=== PATIENT | male | born 1935 | race Hispanic/Latino ===

== ENCOUNTER 2018-07-29 06:00 | Day surgery (SDC) | payer MEDICARE ==
[~2018-07-29 06:00] MED LIST: ACET650T24 PO; ASPI-1181 PO; CETI10TA57 PO; DONE10TA43 PO; LISI10TA7 PO; SODIUM CHLORIDE 0.9% 1000ML 1,000 ML IV ONE; TAMS0.4C32 PO
[2018-07-29 06:18] VITALS: BP 113/66
[2018-07-29] MEDS ORDERED: ATOR20TA65 PO (06:55)
[2018-07-29] MEDS ORDERED: BUSP5TAB3 PO (06:55)
[2018-07-29] MEDS ORDERED: GABA-529 PO (06:55)
[2018-07-29] MEDS ORDERED: SERT50TA12 PO (06:55)
[2018-07-29] MEDS ORDERED: DUTA0.5C17 PO (06:58)
[2018-07-29] MEDS ORDERED: CALC-877 PO (06:58)
[2018-07-29] MEDS ORDERED: DONE10TA43 PO (06:58)
[2018-07-29] MEDS ORDERED: MAGOX PO (07:02)
[2018-07-29] MEDS ORDERED: FEXO-59 PO (07:02)
[2018-07-29 07:14] VITALS: BP 121/67
[2018-07-29 07:19] VITALS: BP 113/55
[2018-07-29 07:25] VITALS: BP 113/86
[2018-07-29 07:43] VITALS: BP 127/86
== END 2018-07-29 07:45 | disposition home or self-care (01) ==
LOC: ENDO 06:00 → DAH 06:00 → ENDO 07:45
PROVIDERS: ATTEND Internal Medicine Gastroenterology
DX: K29.50 Unspecified chronic gastritis without bleeding (principal); R63.4 Abnormal weight loss; E78.5 Hyperlipidemia, unspecified; F41.9 Anxiety disorder, unspecified; M19.90 Unspecified osteoarthritis, unspecified site; K76.0 Fatty (change of) liver, not elsewhere classified; G30.9 Alzheimer's disease, unspecified; F02.80 Dementia in other diseases classified elsewhere, unspecified severity, without behavioral disturbance, psychotic disturbance, mood disturbance, and anxiety; Z79.899 Other long term (current) drug therapy; F32.9 Major depressive disorder, single episode, unspecified
CPT/HCPCS: 43239; 88305; 88341; 88342; 93005; A4606; J7030

== ENCOUNTER 2021-01-31 10:49 | Emergency (ER) | payer MEDICARE ==
[~2021-01-31 10:49] MED LIST changes: -ASPI-1181 PO; +ASPI-1443 PO; +ATOR20TA65 PO; +BUSP5TAB3 PO; +CALC-877 PO; -CETI10TA57 PO; +DUTA0.5C37 PO; +FEXO-59 PO; +GABA-529 PO; -LISI10TA7 PO; +MAGN400T7 PO; +SERT-439 PO; -SODIUM CHLORIDE 0.9% 1000ML 1,000 ML IV ONE
[2021-01-31 12:11] LABS: CREATININE 0.9 mg/dL (0.5-1.5); POTASSIUM 3.9 mmol/L (3.5-5.1)
[2021-01-31] MEDS ORDERED: ALBUTEROL SULFATE 0.083% 2.5 MG/3 ML INH IH ONE (12:13)
[2021-01-31 12:19] LABS: BASOPHILS % (AUTO) 1.5 % (0.0-5.0); EOSINOPHILS % (AUTO) 12.3 % (0.0-8.0); HEMATOCRIT 40.2 % (42-54); LYMPHOCYTES % (AUTO) 25.2 % (21.0-51.0); MEAN CORPUSCULAR HEMOGLOBIN 30.9 pg (27.0-33.0); MEAN CORPUSCULAR HGB CONC 34.3 g/dL (32.0-36.0); MEAN CORPUSCULAR VOLUME 89.9 fL (79-99); MONOCYTES % (AUTO) 9.7 % (3.0-13.0); NEUTROPHILS % (AUTO) 50.5 % (40.0-77.0); PLATELET COUNT (AUTO) 298 K/uL (130-400); RED BLOOD CELL COUNT(AUTO) 4.47 MIL/uL (4.50-6.20); WHITE BLOOD COUNT (AUTO) 7.4 K/uL (4.8-10.8)
[2021-01-31 12:25] LABS: INR 0.95 (0.85-1.15); PROTHROMBIN TIME 10.4 SEC (9.6-11.6)
[2021-01-31 12:27] LABS: ALBUMIN 3.6 g/dL (3.5-5.0); BILIRUBIN,TOTAL 0.3 mg/dL (0.2-1.0); PARTIAL THROMBOPLASTIN TIME 25.2 SEC (26.3-35.5); TOTAL PROTEIN, SERUM 6.3 g/dL (6.0-8.3)
[2021-01-31] MEDS ORDERED: METHYLPREDNISOLONE SOD SUCC 40MG/ML 1ML ONE ×3 (12:35→12:40)
== END 2021-01-31 16:51 | disposition home or self-care (01) ==
LOC: EDH 10:49
DX: J44.9 Chronic obstructive pulmonary disease, unspecified (principal); Z87.891 Personal history of nicotine dependence
CPT/HCPCS: 36415; 71046; 80053; 84484; 85025; 85610; 85730; 93005; 94640; 99285; J2920 ×3

== ENCOUNTER 2021-03-23 21:35 | Emergency (ER) | payer MEDICARE ==
[~2021-03-23] VITALS: Ht 157.5 cm; Wt 64.9 kg
[2021-03-23 22:05] VITALS: BP 130/80
[2021-03-23 22:09] LABS: HEMATOCRIT 44.9 % (42-54); MEAN CORPUSCULAR HEMOGLOBIN 30.9 pg (27.0-33.0); MEAN CORPUSCULAR HGB CONC 34.3 g/dL (32.0-36.0); RED BLOOD CELL COUNT(AUTO) 4.99 MIL/uL (4.50-6.20); RED CELL DISTRIBUTION WIDTH 13.2 % (11.0-15.5); WHITE BLOOD COUNT (AUTO) 8.7 K/uL (4.8-10.8)
[2021-03-23 23:10] LABS: CREATININE 1.1 mg/dL (0.5-1.5); POTASSIUM 3.9 mmol/L (3.5-5.1)
[2021-03-23 23:15] LABS: ALBUMIN 3.8 g/dL (3.5-5.0); BILIRUBIN,TOTAL 0.7 mg/dL (0.2-1.0)
[2021-03-23] MEDS ORDERED: SODIUM CHLORIDE 0.9% 1000ML 1,000 ML IV ONE (23:15)
[2021-03-24] MEDS ORDERED: SODIUM CHLORIDE 0.9% 1000ML 1,000 ML IV ONE (00:30)
[2021-03-24 00:42] VITALS: BP 136/71
[2021-03-24 00:50] LABS: APPEARANCE,URINE Clear (CLEAR); BILIRUBIN,URINE Negative (NEGATIVE); COLOR,URINE Yellow (YELLOW); GLUCOSE, URINE (UA) Negative (NEGATIVE); KETONES,URINE Trace mg/dL (NEGATIVE); LEUKOCYTE ESTERASE ,URINE Trace (NEGATIVE); NITRATE,URINE Negative (NEGATIVE); OCCULT BLOOD,URINE Negative (NEGATIVE); PROTEIN,URINE Negative (NEGATIVE)
[2021-03-24 01:10] LABS: BACTERIA,URINE Few /HPF (None Seen); MUCUS,URINE Few LPF (None Seen); RBC,URINE 0-1 /HPF (0-1); SQUAMOUS EPITHELIAL CELL,UR 0-2 /HPF (0-2)
== END 2021-03-24 02:15 | disposition home or self-care (01) ==
LOC: EDH 21:35
DX: E86.0 Dehydration (principal); F03.90 Unspecified dementia, unspecified severity, without behavioral disturbance, psychotic disturbance, mood disturbance, and anxiety; J44.9 Chronic obstructive pulmonary disease, unspecified; Z79.82 Long term (current) use of aspirin; Z79.899 Other long term (current) drug therapy; Z95.0 Presence of cardiac pacemaker
CPT/HCPCS: 36415; 70450; 71045; 80053; 81001; 84484; 85027; 93005 ×2; 96360; 96361; 99285; J7030

== ENCOUNTER 2021-11-14 20:43 | Emergency (ER) | payer MEDICARE ==
[~2021-11-14] VITALS: Ht 162.6 cm; Wt 64.0 kg
[2021-11-14 21:22] LABS: BASOPHILS % (AUTO) 1.5 % (0.0-5.0); EOSINOPHILS % (AUTO) 6.9 % (0.0-8.0); HEMATOCRIT 48.6 % (42-54); LYMPHOCYTES % (AUTO) 27.5 % (21.0-51.0); MEAN CORPUSCULAR HEMOGLOBIN 29.6 pg (27.0-33.0); MEAN CORPUSCULAR HGB CONC 32.7 g/dL (32.0-36.0); MEAN CORPUSCULAR VOLUME 90.3 fL (79-99); MONOCYTES % (AUTO) 11.1 % (3.0-13.0); NEUTROPHILS % (AUTO) 52.6 % (40.0-77.0); PLATELET COUNT (AUTO) 333 K/uL (130-400); RED BLOOD CELL COUNT(AUTO) 5.38 MIL/uL (4.50-6.20); RED CELL DISTRIBUTION WIDTH 13.1 % (11.0-15.5); WHITE BLOOD COUNT (AUTO) 6.8 K/uL (4.8-10.8)
[2021-11-14 21:39] LABS: POTASSIUM 4.1 mmol/L (3.5-5.1)
[2021-11-14 21:44] LABS: ALBUMIN 3.9 g/dL (3.5-5.0); BILIRUBIN,TOTAL 0.7 mg/dL (0.2-1.0); TOTAL PROTEIN, SERUM 7.2 g/dL (6.0-8.3)
[2021-11-14] MEDS ORDERED: ONDANSETRON 4MG INJ IVP ONE (22:00)
[2021-11-14] MEDS ORDERED: METOCLOPRAMIDE 10 MG/2 ML VIAL IVP ONE (22:00)
[2021-11-14] MEDS ORDERED: MORPHINE 2 MG SYG IVP ONE (22:00)
[2021-11-14] MEDS ORDERED: 0.9%NACL 1000ML 1,000 ML IV ONE (22:30)
[2021-11-15 00:11] LABS: APPEARANCE,URINE Cloudy (CLEAR); BILIRUBIN,URINE Small (NEGATIVE); COLOR,URINE Dark Yellow (YELLOW); GLUCOSE, URINE (UA) Negative (NEGATIVE); KETONES,URINE Trace mg/dL (NEGATIVE); LEUKOCYTE ESTERASE ,URINE Small (NEGATIVE); NITRATE,URINE Negative (NEGATIVE); OCCULT BLOOD,URINE Trace (NEGATIVE); PROTEIN,URINE POS 1+ mg/dL (NEGATIVE)
[2021-11-15 00:29] LABS: RBC,URINE 0-1 /HPF (0-1)
[2021-11-15 00:30] LABS: BACTERIA,URINE Rare /HPF (None Seen); MUCUS,URINE Many LPF (None Seen); SQUAMOUS EPITHELIAL CELL,UR Rare /HPF (0-2)
[2021-11-15 00:34] LABS: AMORPHOUS SEDIMENT,UR Moderate /LPF (None Seen)
[2021-11-15] MEDS ORDERED: MELO7.5T12 PO (01:40)
[2021-11-15] MEDS ORDERED: DICY20TA2 PO (01:40)
[2021-11-15] MEDS ORDERED: CEPH500B PO (01:40)
[2021-11-15] MEDS ORDERED: ORPH-43 PO (01:55)
[2021-11-15] MEDS ORDERED: KETOROLAC 15MG/ML VIAL (15MG/ML) IV ONE (02:00)
[2021-11-15] MEDS ORDERED: CEFTRIAXONE 1G VIAL IVP ONE (02:00)
[2021-11-15 02:09] VITALS: BP 118/62
== END 2021-11-15 02:35 | disposition home or self-care (01) ==
LOC: EDH 20:43
DX: N39.0 Urinary tract infection, site not specified (principal); E86.9 Volume depletion, unspecified; F03.90 Unspecified dementia, unspecified severity, without behavioral disturbance, psychotic disturbance, mood disturbance, and anxiety; J44.9 Chronic obstructive pulmonary disease, unspecified; Z79.1 Long term (current) use of non-steroidal anti-inflammatories (NSAID); F17.200 Nicotine dependence, unspecified, uncomplicated; Z79.82 Long term (current) use of aspirin; Z79.899 Other long term (current) drug therapy; Z90.49 Acquired absence of other specified parts of digestive tract; Z95.0 Presence of cardiac pacemaker
CPT/HCPCS: 36415; 71045; 74176; 76705; 80053; 81001; 83690; 84484; 85025; 87077; 87088; 87186; 93005; 96361; 96374; 96375 ×2; 99285; J0696; J1885; J2405; J2765